=== PATIENT | female | born 1980 | race Caucasian/White ===

== ENCOUNTER 2023-07-17 08:28 | Outpatient (CLI) | payer OTHER, SELFPAY | END 2023-07-17 08:29 | disposition home or self-care (01) | PROVIDERS: PCP Family Medicine; Visit Provider Family Medicine | DX: Z00.00 Encounter for general adult medical examination without abnormal findings (principal); R53.83 Other fatigue; R00.0 Tachycardia, unspecified; Z13.6 Encounter for screening for cardiovascular disorders; Z86.32 Personal history of gestational diabetes | CPT/HCPCS: 80053; 80061; 84443 ==

== ENCOUNTER 2024-02-12 15:04 | Outpatient (CLI) | payer OTHER, SELFPAY | END 2024-02-12 15:05 | disposition home or self-care (01) | PROVIDERS: PCP Family Medicine; Visit Provider Family Medicine | DX: R10.31 Right lower quadrant pain (principal); M54.9 Dorsalgia, unspecified | CPT/HCPCS: 80053; 84443; 86140 ==

== ENCOUNTER 2024-02-12 15:35 | Outpatient (CLI) | payer OTHER, SELFPAY ==
--- NOTE | 2024-02-12 15:30 | CRLHL7_ITS ---
For Patients: As a result of the Century Cures Act, medical imaging exams and procedure reports are released immediately into your electronic medical record. You may view this report before your referring provider. If you have questions, please contact your health care provider. INDICATION: Right lower quadrant pain. TECHNIQUE: CT abdomen and pelvis without contrast. COMPARISON: None. FINDINGS: Lower chest: Unremarkable. Noncontrast technique limits solid organ evaluation. Liver: Normal in size and attenuation. No suspicious masses. Gallbladder and bile ducts: Cholecystectomy. No biliary dilatation. Pancreas: Unremarkable. No mass or inflammation. Spleen: Normal in size. No masses. Adrenal glands: Normal in size. No nodules. Kidneys: Normal in size. No suspicious masses, stones, or hydronephrosis. GI tract: Unremarkable. Normal in caliber. No sign of mass or inflammation. The appendix contains hyperdense material, but is normal in size with no evident surrounding inflammatory changes. Vasculature: Abdominal aorta is normal in caliber. Lymph nodes: No lymphadenopathy. Peritoneum/Abdominal Wall: Unremarkable. No sign of mass or infiltration. No free air or significant free fluid. Pelvis: Unremarkable. No pelvic masses. Bones: Unremarkable for age. IMPRESSION: No acute findings in the abdomen or pelvis on this noncontrast examination. Please note that all CT scans at this facility use dose modulation, iterative reconstruction, and/or weight-based dosing when appropriate to reduce radiation dose to as low as reasonably achievable. Dictated by Rodney Ramos MD @ 02/12/2024 4:08:12 PM (Electronically Signed)
== END 2024-02-12 15:36 | disposition home or self-care (01) ==
LOC: CT 15:37
PROVIDERS: PCP Family Medicine; Visit Provider Family Medicine
DX: R10.31 Right lower quadrant pain (principal); M54.9 Dorsalgia, unspecified
CPT/HCPCS: 74176; 80053; 84443; 86140

== ENCOUNTER 2024-02-16 10:08 | Outpatient (CLI) | payer OTHER, SELFPAY ==
--- NOTE | 2024-02-16 10:15 | CRLHL7_ITS ---
For Patients: As a result of the Century Cures Act, medical imaging exams and procedure reports are released immediately into your electronic medical record. You may view this report before your referring provider. If you have questions, please contact your health care provider. INDICATION: rt groin/back pain COMPARISON: CT 02/12/2024 TECHNIQUE: 2D roach scale and color Doppler images were acquired of the pelvis using a transabdominal and transvaginal approach. FINDINGS: Sonographic images demonstrate a normal size and smooth outer contour of the uterus. Uterus measures 6.3 cm in length by 4.2 cm in AP diameter by 5.5 cm in transverse dimension. The myometrium has a normal uniform echotexture. The endometrial lining measures 10.6 mm in composite thickness. Nodular areas within the endometrium are present measuring 15 x 10 x 12 millimeters and 13 x 9 x 10 millimeters. No endometrial fluid. The right ovary measures 1.9 x 1.9 x 1.9 cm in size and the left ovary measures 2.8 x 1.7 x 1.1 cm. The ovaries demonstrate normal arterial and venous blood flow on color Doppler analysis. There are no suspicious fluid collections within the cul-de-sac. IMPRESSION: Endometrium measures 12 millimeters. Probable endometrial polyps measuring 15 millimeters and 13 millimeters. Dictated by John Silvestre MD @ 02/16/2024 11:52:39 AM (Electronically Signed)
== END 2024-02-16 10:09 | disposition home or self-care (01) ==
LOC: US 10:09
PROVIDERS: PCP Family Medicine; Visit Provider Family Medicine
DX: R10.31 Right lower quadrant pain (principal); R93.89 Abnormal findings on diagnostic imaging of other specified body structures; Z98.890 Other specified postprocedural states; Z87.42 Personal history of other diseases of the female genital tract; M54.9 Dorsalgia, unspecified
CPT/HCPCS: 76830; 76856; 93976

== ENCOUNTER 2024-03-24 06:06 | Day surgery (SDC) | payer OTHER, SELFPAY ==
[2024-03-24] MEDS: LACTATED RINGERS 500 ML 500 ML IV (06:30)
[2024-03-24] MEDS: SODIUM CHLORIDE 0.9 % (FLUSH) 10 ML SYRINGE IVF (06:30)
[2024-03-24 06:39] VITALS: BP 119/85; PULSE 99; RESP 16; TEMP 36.9; O2SAT 100
[2024-03-24 06:45] LABS: Hemoglobin* 13.7 gm/dL (12.0-16.0)
[2024-03-24 06:47] LABS: Ur HCG Qualitative* Negative (Negative)
[2024-03-24 07:05] LABS: Creatinine* 0.7 mg/dL (0.5-1.5); Estimated Glomerular Filt Rate 110 ml/min
--- NOTE | 2024-03-24 07:07 | W.PM.H&PU ---
History & Physical Update History & Physical Update H&P Reviewed and patient assessed: No changes noted
--- NOTE | 2024-03-24 07:08 | P.GYNPRC_ITS ---
Procedure Note Time Seen by Provider: 07:09 Date of procedure: 03/24/24 Will [facility] bill your pro fee for this procedure?: Yes Anesthesia: MAC and local Pathology: specimen obtained, sent to pathology (Endometrial curetting and polyps) Procedure Description: Preoperative diagnosis: Pilar is a 43 year-old with heavy menstrual bleeding (AUB) secondary to polyps. Postoperative diagnosis: Same Procedure: Hysteroscopy, dilation and curettage, polypectomy, and Mirena IUD insertion. Anesthesia: Conscious sedation with paracervical block. Surgeon: Maria Elena Dinh MD Estimated blood loss: <5 mL Specimen: Endometrial curettings to pathology. Findings: Exam under anesthesia: Cervix palpates normal. Uterus: anteverted position, 5 week size, mobile, without nodularity/masses palpable. Adnexa were without fullness or nodularity. On hysteroscopy: Fluffy endometrium. Multiple endometrial polyps, largest one being on left posterior uterine wall. Normal bilateral tubal ostia. Procedure: Pilar was taken to the operating where conscious sedation was found to be adequate. She was placed in the dorsal lithotomy position. An exam under anesthesia was performed with findings stated above. She was then prepped and draped in normal sterile manner. A bivalve metal speculum was placed in the vaginal canal. The cervix and vaginal canal appear normal. A paracervical block was placed using 1% lidocaine with epinephrine: 5 mL injected at the 4 and 8 o'clock positions on the cervix. The anterior lip of the cervix was then grasped with a long Allis. The cervix was dilated to Hegar 6. The uterus sounded to 6.5 cm. The hysteroscope advanced into the uterus and a diagnostic hysteroscopy was performed with findings stated above. Normal saline was used as the insufflation medium. Soft tissue shaver was used to perform polypectomy and global curetting. One pass of sharp curette to obtain remnant of polyp on posterior wall. The uterus and documented a normal appearing uterine cavity at the end of the procedure. Fluid deficit at the end of the procedure 180 mL. Total fluid: 1040 mL Attention was then turned towards the Mirena IUD insertion. The IUD is loaded into the insertion tube, inserted to the sounded depth, and the IUD is deployed. Insertion tube was removed. Strings are trimmed to 3 cm. There were no complications with insertion. Hysteroscope was used to confirm intrauterine positioning the IUD. IUD arm appropriately at the uterine fundus. The hysteroscope and long Allis were removed from the uterus and cervix. Excellent hemostasis noted. Nothing was used for hemostasis. The patient tolerated the procedure well. Sponge, lap and instruments counts were correct at the end of the procedure. The patient was awakened from anesthesia and taken to the recovery area in stable condition. Surgical debrief performed at the end of the procedure.
--- NOTE | 2024-03-24 07:28 | W.ANESCHARGE ---
Anesthesia Charges Start Date/Time Anesthesia Start Date: 03/24/24 Anesthesia Start Time: 07:15 Stop Date/Time Anesthesia Stop Date: 03/24/24 Anesthesia Stop Time: 08:09 Coding CPT Codes CPT Codes: ANESTH HYSTEROSCOPE/GRAPH - 83722 ([id number]) P1 - NORMAL HEALTHY PATIENT, QK - QUANTOMETER OPERATOR 2-4 CNCRNT ANES PROC, QX - COMPACTOR DRIVER SVC W/ MED DIRECTION
[2024-03-24] MEDS: LIDOCAINE 1%-EPI 1:100,000 20 ML INFILTRATI (07:45)
[2024-03-24 08:05] VITALS: BP 110/71; PULSE 88; RESP 16; TEMP 37.2; O2SAT 100
[2024-03-24 08:15] VITALS: BP 115/76; PULSE 85; RESP 16; O2SAT 100
--- NOTE | 2024-03-24 08:22 | W.ANESCHARGE ---
Anesthesia Charges Start Date/Time Anesthesia Start Date: 03/24/24 Anesthesia Start Time: 07:15 Stop Date/Time Anesthesia Stop Date: 03/24/24 Anesthesia Stop Time: 08:09 Coding CPT Codes CPT Codes: ANESTH HYSTEROSCOPE/GRAPH - 71458 ([id number]) QK - HOME AND FAMILY LIVING PROFESSOR 2-4 CNCRNT ANES PROC, QX - CLOD PULLER SVC W/ MD MED DIRECTION, P1 - NORMAL HEALTHY PATIENT
[2024-03-24 08:30] VITALS: BP 116/83; PULSE 79; RESP 16; O2SAT 100
[2024-03-24 08:45] VITALS: BP 115/77; PULSE 78; RESP 16; O2SAT 100
== END 2024-03-24 09:12 | disposition home or self-care (01) ==
LOC: OR 06:07
PROVIDERS: PCP Family Medicine; Visit Provider Obstetrics & Gynecology
PROC: 0UDB8ZZ Extraction of Endometrium, Via Natural or Artificial Opening Endoscopic (ICD-10-PCS; CPT 58558; principal; 2024-03-24 07:15)
DX: N92.0 Excessive and frequent menstruation with regular cycle (principal); N84.0 Polyp of corpus uteri
CPT/HCPCS: 58558; 58300; 00952; 36415; 81025; 82565; 85018; 86850; 86900; 86901; 88305; C1782; J1100; J1885; J2250; J2405; J2704; J3490; J7120; J7298

== ENCOUNTER 2024-09-10 08:03 | Outpatient (CLI) | payer OTHER, SELFPAY ==
--- NOTE | 2024-09-10 08:15 | CRLHL7_ITS ---
For Patients: As a result of the Century Cures Act, medical imaging exams and procedure reports are released immediately into your electronic medical record. You may view this report before your referring provider. If you have questions, please contact your health care provider. BILATERAL DIGITAL SCREENING MAMMOGRAM WITH COMPUTER-AIDED DETECTION AND TOMOSYNTHESIS CLINICAL HISTORY: : Routine screening exam. COMPARISON: None TECHNIQUE: Digital mammogram in CC and MLO projections including computer-aided detection (CAD). Tomosynthesis was used in this interpretation. BREAST COMPOSITION: There are scattered areas of fibroglandular density. FINDINGS: RIGHT Breast: No suspicious findings LEFT Breast: Focal asymmetric density in the upper outer quadrant 7 cm from the nipple. IMPRESSION: LEFT breast asymmetry/mass. RECOMMENDATIONS: Additional mammographic views of the LEFT breast including 3D spot-compression CC/MLO. LEFT breast ultrasound may also be required. [facility] will contact the patient. A lay language report of this examination will be provided to the patient. BI-RADS Category 0: Incomplete: Need Additional Imaging Evaluation Dictated by John Silvestre MD @ 09/13/2024 9:59:44 AM Dictated by: John Silvestre MD @ 09/13/2024 09:59:48 (Electronically Signed)
== END 2024-09-10 08:04 | disposition home or self-care (01) ==
LOC: MAMMO 08:03
PROVIDERS: PCP Family Medicine; Visit Provider Family Medicine
DX: Z12.31 Encounter for screening mammogram for malignant neoplasm of breast (principal); N63.20 Unspecified lump in the left breast, unspecified quadrant
CPT/HCPCS: 77063; 77067

== ENCOUNTER 2024-09-22 10:31 | Outpatient (CLI) | payer OTHER, SELFPAY ==
--- NOTE | 2024-09-22 10:45 | CRLHL7_ITS ---
For Patients: As a result of the Century Cures Act, medical imaging exams and procedure reports are released immediately into your electronic medical record. You may view this report before your referring provider. If you have questions, please contact your health care provider. LEFT DIAGNOSTIC MAMMOGRAM WITH COMPUTER-AIDED DETECTION AND TOMOSYNTHESIS LEFT BREAST ULTRASOUND CLINICAL HISTORY: LEFT breast mass/asymmetry. COMPARISON: 09/10/2024. TECHNIQUE: Digital LEFT mammogram in two projections. Computer-aided detection and tomosynthesis were used in this interpretation. Real-time ultrasound imaging of LEFT breast with imaging documentation. BREAST COMPOSITION: There are scattered areas of fibroglandular density. FINDINGS: 3D spot compression CC/MLO LEFT breast mammogram images submitted. Decreased conspicuity of previously noted asymmetric density. No architectural distortion. No suspicious calcifications. Targeted LEFT breast ultrasound performed. At 2 o`clock, 7 cm from the nipple, there is normal fibroglandular tissue. No fibrocystic change. No solid mass. IMPRESSION: No suspicious findings. No evidence of malignancy. RECOMMENDATIONS: Routine screening mammography. BI-RADS Category 2: Benign A lay language report of this examination will be provided to the patient. Dictated by John Silvestre MD @ 09/22/2024 11:25:06 AM /sp SP/Dictated by: John Silvestre MD @ 09/22/2024 11:25:00 AM (Electronically Signed)
--- NOTE | 2024-09-22 11:15 | CRLHL7_ITS ---
For Patients: As a result of the Century Cures Act, medical imaging exams and procedure reports are released immediately into your electronic medical record. You may view this report before your referring provider. If you have questions, please contact your health care provider. PLEASE SEE LEFT BREAST DIAGNOSTIC MAMMOGRAM PERFORMED SAME DAY. CRL:sp SP/Dictated by: John Silvestre MD @ 09/22/2024 11:25:00 AM (Electronically Signed)
== END 2024-09-22 10:32 | disposition home or self-care (01) ==
LOC: MAMMO 10:32
PROVIDERS: PCP Family Medicine; Visit Provider Family Medicine
DX: N63.20 Unspecified lump in the left breast, unspecified quadrant (principal); R92.8 Other abnormal and inconclusive findings on diagnostic imaging of breast
CPT/HCPCS: 76642; 77065; G0279

== ENCOUNTER 2024-12-10 07:38 | Outpatient (CLI) | payer OTHER, SELFPAY | END 2024-12-10 07:39 | disposition home or self-care (01) | PROVIDERS: PCP Family Medicine; Visit Provider Family Medicine | DX: E78.5 Hyperlipidemia, unspecified (principal); Z86.32 Personal history of gestational diabetes | CPT/HCPCS: 80061; 82947 ==